=== PATIENT | male | born 1940 | race Caucasian/White ===

== ENCOUNTER 2021-05-17 12:20 | Emergency (ER) | payer MEDICARE, OTHER, SELFPAY ==
[2021-05-17 12:53] VITALS: BP 122/88; PULSE 75; RESP 16; TEMP 37.3; O2SAT 99
--- NOTE | 2021-05-17 13:48 | ED.GENADULT ---
HPI - General Adult General Chief complaint: Fever Stated complaint: Fever Time Seen by Provider: 05/17/21 13:47 History of Present Illness HPI narrative: Patient is an 80-year-old male who comes into the ED today requesting to be tested for COVID-19. Patient reports that his grandson visited him recently and ended up testing positive for COVID-19. The patient this morning felt fatigued, he had his temperature checked with a forehead scanner and it was around 102 degrees. So he decided to come to the emergency room. Upon arrival he does not have a fever. He says that he is feeling fine currently. Denies any chest pain, shortness of breath, headaches. He is COVID-19 vaccinated. Review of Systems Constitutional: Constitutional: Reports as per HPI, Denies fever(s), Denies night sweats and Denies weakness Cardiovascular: Cardiovascular: Denies chest pain, Denies edema, Denies leg edema, Denies dyspnea and Denies orthopnea Respiratory: Respiratory: Denies cough and Denies dyspnea Gastrointestinal: Gastrointestinal: Denies abdominal pain, Denies constipation, Denies diarrhea, Denies nausea and Denies vomiting Musculoskeletal: Musculoskeletal: Denies abnormal gait, Denies back pain, Denies numbness and Denies tingling Neurologic: Denies Abnormal speech present, Denies abnormal gait, Denies numbness, Denies tingling and Denies weakness Psychiatric: Psychiatric: Denies homicidal ideation and Denies suicidal ideation Exam Narrative: Elderly, pleasant, well-appearing Const: General: cooperative, healthy appearing, comfortable, no acute distress, well developed, alert, awake and Physically active Orientation/consciousness: patient oriented x3 HENMT: Head: normal to inspection, normocephalic and atraumatic Ears: external ears normal General nose exam: Normal external nose present Eyes: Pupils: Equal, round and reactive pupils present EOM: EOMs intact bilaterally Neck: Neck: normal visual inspection Chest: Chest palpation & inspection: normal inspection of the chest and no tenderness Resp: Effort & Inspection: normal respiratory effort and able to speak in complete sentences Auscultation: clear to auscultation bilaterally Cardio: Rate: regular rate Rhythm: regular rhythm GI: Inspection: normal to inspection GI Palp: No abdominal tenderness : General: Yes no CVA tenderness Back/Spine/Pelvis: Back: no CVA tenderness Skin: General skin exam: normal color and no rashes or lesions noted Lesions: no lesions Neuro: General: patient oriented x3, no focal motor deficits and CN's II-XI intact bilaterally Cranial nerves: Yes Equal, round and reactive pupils present Speech: No Abnormal speech present Extrem: General: normal to inspection and full ROM Psych: Appearance: grossly normal and well kempt Mental Status: mental status grossly normal Speech and movement: Normal speech and movement present Affect: normal affect Thought process: Normal thought process present Course Course Emergency Course: I saw this patient in the triage box as the main emergency room is currently full of admitted boarded patients during this COVID-19 surge. You were tested for the COVID-19 virus today. Results should come back in about 2 days. Results will be forwarded to your primary care doctor. Recommend rest and hydration. Over-t Vital Signs Vital signs: Vital Signs Temperature 37.3 C 05/17/21 12:53 Pulse Rate 75 05/17/21 12:53 Respiratory Rate 16 05/17/21 12:53 Blood Pressure 122/88 05/17/21 12:53 Pulse Oximetry 99 05/17/21 12:53 Temperature 37.3 C 05/17/21 12:53 Pulse Rate 75 05/17/21 12:53 Respiratory Rate 16 05/17/21 12:53 Blood Pressure 122/88 05/17/21 12:53 Pulse Oximetry 99 05/17/21 12:53 Medical Decision Making Vital Signs Vital Signs: Vital Signs Temperature 37.3 C 05/17/21 12:53 Pulse Rate 75 05/17/21 12:53 Respiratory Rate 16 05/17/21 12:53 Blood Pressure 122
[2021-05-17 16:40] VITALS: PULSE 76; RESP 19; O2SAT 99
[2021-05-18 13:42] LABS: SARS-CoV-2 RNA PCR Positive
== END 2021-05-17 16:45 | disposition home or self-care (01) ==
LOC: ANHED 16:54
PROVIDERS: Physician Assistant Medical; PCP Internal Medicine
DX: U07.1 COVID-19 (principal); R50.9 Fever, unspecified
CPT/HCPCS: 99283; C9803; U0003; U0005

== ENCOUNTER 2022-09-06 07:15 | Outpatient (RCR) | payer MEDICARE, OTHER, SELFPAY ==
[2022-06-15 09:09] VITALS: PULSE 65
== END 2022-09-06 16:04 | disposition home or self-care (01) ==
LOC: ANHCPREHAB 07:15
PROVIDERS: PCP Internal Medicine; Visit Provider Internal Medicine Cardiovascular Disease
DX: Z95.2 Presence of prosthetic heart valve (principal)
CPT/HCPCS: 93798